=== PATIENT | female | born 1965 | race American Indian/Alaskan Native ===

== ENCOUNTER 2020-11-05 10:48 | Outpatient (CLI) | payer OTHER ==
--- NOTE | 2020-11-05 12:06 | XRay Report ---
BILATERAL KNEES 2 VIEWS INDICATION: BILATERAL KNEE PAIN. COMPARISON: None. IMPRESSION: Normal bone mineralization. No acute osseous abnormality or bone lesion. Minimal medial compartment joint space narrowing, tibial spine spurring and retropatellar spurring are identified i n both knees consistent with early osteoarthritic changes. No joint effusion is appreciated. Signer Name: Chuck Jay Jr, MD Signed: 11/05/2020 12:02 PM Workstation Name: [id number]
== END 2020-11-05 10:49 | disposition home or self-care (01) ==
LOC: XRAY 10:48
PROVIDERS: ATTEND Internal Medicine
DX: Z02.71 Encounter for disability determination (principal); M25.562 Pain in left knee; M25.561 Pain in right knee

== ENCOUNTER 2021-01-20 11:08 | Outpatient (CLI) | payer OTHER ==
--- NOTE | 2021-01-20 13:57 | XRay Report ---
Lumbar spine 3 views INDICATION: Back pain FINDINGS: Alignment appears normal. No subluxation is seen. Endplate changes most significant L4-5 an d L5-S1 with facet arthropathy. Signer Name: Kermit Avalos MD Signed: 01/20/2021 1:53 PM Workstation Name: [id number]
== END 2021-01-20 11:09 | disposition home or self-care (01) ==
LOC: XRAY 11:08
PROVIDERS: ATTEND Internal Medicine
DX: M47.817 Spondylosis without myelopathy or radiculopathy, lumbosacral region (principal)
CPT/HCPCS: 72100